=== PATIENT | female | born 1935 | race Caucasian/White ===

== ENCOUNTER → 2017-03-11 | Outpatient (CLI) | payer MEDICARE, MEDICAID ==
[~2017-03-11] MED LIST: ACET325T51 PO; ANAS1TAB8 PO; CALC-139 PO; DOCU-168 PO; DULO30CA2 PO; ESOM40CA PO; GUAI600T PO; HYDR-3995 PO; HYDR25TA PO; MAGN400O4 PO; NABU500T3 PO; POLY17PO6 PO; POTA10CA37 PO; PRAM0.5T3 PO; QUET25TA PO; RISP0.5T20 PO; SIMV40TA5 PO; TOLT4CAP PO; TROL177. TOP; VENL75TA4 PO; [UNRECOGNIZED DRUG - CODE] PO
[2017-03-11 09:33] LABS: ANION GAP 14 MEQ/L (5-15); BUN/CREATININE RATIO 19 RATIO (6-26); CALCIUM 9.2 MG/DL (8.4-10.2); CHLORIDE 97 MEQ/L (98-107); CO2 - CARBON DIOXIDE 33 MEQ/L (22-30); CREATININE 0.8 MG/DL (0.7-1.2); GLOMERULAR FILTRATION RATE 69; GLUCOSE 116 MG/DL (65-110); POTASSIUM 3.3 MEQ/L (3.6-5); SODIUM 144 MEQ/L (134-144)
== END ==
LOC: LABNH.AP 02:31
PROVIDERS: ATTEND Family Medicine
DX: I10 Essential (primary) hypertension (principal)
CPT/HCPCS: 36415; 80048; P9604